=== PATIENT | male | born 1995 | race Caucasian/White ===

== ENCOUNTER 2019-05-14 12:32 | Emergency (ER) | payer SELFPAY ==
[~2019-05-14] VITALS: Ht 182.9 cm; Wt 74.5 kg
[2019-05-14 12:38] VITALS: BP 131/70; PULSE 66; RESP 18; Ht 182.9 cm; Wt 74.5 kg
--- NOTE | 2019-05-14 12:49 | EN ---
Date/Time of Note Date/Time of Note DATE: 05/14/19 TIME: 12:48 ER Progress Note 24-year-old male with 3-day history of pain swelling discharge in his perineal area. Patient does not meet SIRS criteria and is well-appearing. History suggest perineal abscess necessitating further treatment in ED2. LXEIE ASTUDILLO MD May 14, 2019 12:49
[2019-05-14] MEDS ORDERED: DIPHTH/TET/ACEL PERTUSS (ADULT) 0.5 ML VIAL IM* ONE (13:00)
[2019-05-14] MEDS ORDERED: LIDOCAINE 1% (MPF) 5 ML VIAL INJ ONE (13:00)
[2019-05-14] MEDS ORDERED: ONDANSETRON (ODT) 4 MG TAB ODT STA (13:51)
[2019-05-14] MEDS ORDERED: NAPR-985 PO (13:52)
[2019-05-14] MEDS ORDERED: CEPH-443 PO (13:52)
[2019-05-14] MEDS ORDERED: SULF1TAB31 PO (13:52)
[2019-05-14] MEDS ORDERED: HYDROCODONE/APAP (5/325) TAB PO ONE (14:00)
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
== END 2019-05-14 15:10 | disposition home or self-care (01) ==
LOC: FTE 12:32
DX: N45.4 Abscess of epididymis or testis (principal); Z23 Encounter for immunization
CPT/HCPCS: 90471; 90715